=== PATIENT | female | born 1990 | race Caucasian/White ===

== ENCOUNTER → 2020-12-31 | Outpatient (CLI) | payer OTHER ==
--- NOTE | 2021-01-07 08:35 | SLEEP ---
[address] [address] SLEEP STUDY REPORT Name: EDGAR BURCH Room: [facility]#: [id number] Admission: 12/31/20 Attend Phys: Jesus Alberto Armendariz DO Discharge: Date of : 86 Report #: [id number] THIS REPORT FOR: cc: Jesus Alberto Armendariz Adam J DO Pervez, Adeel MD ~ DOC #: [id number] Niranjan Kang MD DATE OF STUDY: 12/31/2020 SLEEP STUDY INDICATION FOR SLEEP STUDY: Daytime sleepiness. INTERPRETATION: Total duration of the study is 417 minutes, out of which she was asleep for 401 minutes with an overall sleep efficiency of 96.3%. Sleep onset was rapid, alternating 4 minutes after lying down in bed. REM onset occurred 193 minutes after sleep onset. N1 sleep duration is 10%, N2 duration is 34%, N3 duration is 42% and REM duration is 15%. Mean heart rate is 84, periodic limb movement index is normal at 6.6 and arousal index is essentially normal at 10.3. We recorded rare sleep-related respiratory events. these included 3 obstructive apneas in addition to 3 hypopneas. Overall, apnea-hypopnea index is normal at 1.2, O2 saturation is also adequately maintained throughout this sleep study. IMPRESSION AND PLAN: While obstructive sleep apnea was not detected during the sleep study and O2 saturation was also adequately maintained, it is noted that the patient's body mass index is elevated to 51 and the history provided is consistent with sleep-related hypoventilation. Therefore, it is still possible that the patient will benefit from a BiPAP while asleep. I understand that with a normal apnea-hypopnea index, her insurance may not pay for a BiPAP. I still therefore recommend considering a BiPAP while asleep if the patient is able to afford paying for it out of pocket. Obtaining a pulmonary consultation to assess further can be a consideration. Recommend weight loss if clinically appropriate. Recommend avoiding driving and other activities requiring vigilance if drowsy. This entire sleep study was reviewed by board certified sleep physician. [place] [address] SLEEP STUDY REPORT Name: EDGAR BURCH Room: [facility]#: [id number] Admission: 12/31/20 Attend Phys: Jesus Alberto Armendariz DO Discharge: Date of : 86 Report #: [id number] <ELECTRONICALLY SIGNED> By: Niranjan Kang MD 01/07/21 0835 [id number] Kang MD /nt
== END ==
LOC: M.SLEEPLAB 20:58
PROVIDERS: ATTEND Family Medicine
DX: G43.709 Chronic migraine without aura, not intractable, without status migrainosus (principal); R06.83 Snoring; R40.0 Somnolence

== ENCOUNTER 2021-05-10 03:29 | Emergency (ER) | payer OTHER ==
[~2021-05-10] VITALS: Ht 170.2 cm; Wt 147.0 kg
[2021-05-10] MEDS ORDERED: LEXAPRO20 MG PO (03:52)
[2021-05-10] MEDS ORDERED: AMITRIPTYLINE100 MG PO (03:52)
[2021-05-10] MEDS ORDERED: HYDRALAZINE HC100 MG PO (03:53)
[2021-05-10] MEDS ORDERED: ZYRTEC10 M4 PO (03:53)
[2021-05-10] MEDS ORDERED: FAMOTIDINE10 MG PO (03:54)
[2021-05-10] MEDS ORDERED: METRONIDAZOLE500 M4 PO (03:54)
[2021-05-10 04:49] LABS: URINE BILIRUBIN NEGATIVE (Negative); URINE BLOOD 3+ (Negative); URINE CLARITY CLEAR; URINE COLOR YELLOW; URINE GLUCOSE-RANDOM NEGATIVE (Negative); URINE KETONES NEGATIVE (Negative); URINE LEUKOCYTES-REFLEX NEGATIVE (Negative); URINE NITRITE-REFLEX NEGATIVE (Negative); URINE PROTEIN 1+ (Negative); URINE SPECIFIC GRAVITY >= 1.030 (1.005-1.030); URINE UROBILINOGEN 0.2 E.U./dl (0.2-1.0)
[2021-05-10 05:01] LABS: ABSOLUTE BASOPHILS 0.1 thou/uL (0.0-0.2); ABSOLUTE EOSINOPHILS 0.1 thou/uL (0.0-0.7); ABSOLUTE LYMPHOCYTES 2.9 thou/uL (0.8-5.3); ABSOLUTE MONOCYTES 0.7 thou/uL (0.0-1.2); ABSOLUTE NEUTROPHILS 7.5 thou/uL (1.6-8.1); BASOPHILS 0.7 %; EOSINOPHILS 1.3 %; HEMOGLOBIN 11.7 gm/dL (12.0-15.0); MCH 27.3 pg (26.0-34.0); MCHC 33.4 g/dL (28.0-37.0); MCV 81.8 fL (80.0-100.0); MPV 6.6 fl. (7.2-11.1); NUCLEATED RBCS 0 /100WBC; PLATELET COUNT* 338 thou/uL (150-400); RBC 4.29 mil/uL (4.20-5.00); RDW-CV 13.2 % (10.5-14.5); WBC 11.3 thou/uL (4.0-11.0)
[2021-05-10 05:15] LABS: CALCIUM 8.5 mg/dL (8.5-10.1); POTASSIUM 3.8 mmol/L (3.5-5.1)
[2021-05-10 05:20] LABS: ALBUMIN 3.1 g/dL (3.4-5.0); TOTAL BILIRUBIN 0.2 mg/dL (<0.1-1.0); TOTAL PROTEIN 6.9 g/dL (6.4-8.2)
[2021-05-10 05:36] LABS: SQUAMOUS 0-3 Few /LPF (0-3)
[2021-05-10 05:37] LABS: BACTERIA-REFLEX 1-9 Few /HPF (None Seen); CASTS None Seen /LPF (None Seen); CRYSTALS None Seen /LPF (None Seen); MUCUS 0-3 Light strn/LPF (None Seen); URINE RBC >20 Many /HPF (0-2); URINE WBC-REFLEX None Seen /HPF (0-5)
[2021-05-10] MEDS ORDERED: NORCO5 PO (06:38)
[2021-05-10] MEDS ORDERED: PHENERGAN 25 MG25 M1 PO (06:38)
[2021-05-10 07:10] VITALS: BP 111/72
== END 2021-05-10 07:10 | disposition home or self-care (01) ==
LOC: M.ERS 03:29
PROVIDERS: Personal Emergency Response Attendant
DX: N13.2 Hydronephrosis with renal and ureteral calculous obstruction (principal); G43.909 Migraine, unspecified, not intractable, without status migrainosus; Z79.899 Other long term (current) drug therapy; Z88.1 Allergy status to other antibiotic agents